=== PATIENT | male | born 1990 | race Caucasian/White ===

== ENCOUNTER 2023-04-20 00:17 | Emergency (ER) | payer MEDICAID, SELFPAY ==
--- NOTE | 2023-04-20 | ECG_ITS ---
Test Reason : DIZZINESS Blood Pressure : / mmHG Vent. Rate : 055 BPM Atrial Rate : 055 BPM P-R Int : 144 ms QRS Dur : 098 ms QT Int : 414 ms P-R-T Axes : 020 036 025 degrees QTc Int : 396 ms Sinus bradycardia RSR' or QR pattern in V1 suggests right ventricular conduction delay Abnormal ECG No previous ECGs available Referred By: Generic ED Physician Electronically Signed By:CHRISTINE SMITH MD
--- NOTE | ~2023-04-20 | XR_ITS ---
EXAMINATION: XR CHEST CLINICAL INFORMATION: Syncope. COMPARISON: None available. TECHNIQUE: 2 views of the chest were obtained. FINDINGS: No significant abnormality is noted involving the heart, lungs, mediastinum, bony thorax or soft tissues. XR/XR chest 2V IMPRESSION: Unremarkable examination.
--- NOTE | ~2023-04-20 | CT_ITS ---
EXAMINATION: CT HEAD WITHOUT CONTRAST CLINICAL INFORMATION: Fall. Injury. Pain. COMPARISON: None available. TECHNIQUE: Contiguous axial imaging was performed from the skull base to vertex without intravenous administration of contrast. This CT examination was performed using dose optimization techniques as appropriate, variously including the following: *Automated exposure control *Adjustment of mA and/or kV according to patient size (this includes techniques or standardized protocols for targeted exams where dose is matched to indication/reason for exam; i.e. extremities or head) *Use of iterative reconstruction technique DLP: 754 mGy-cm FINDINGS: The lateral, third and fourth ventricles are normally outlined. The cortical sulci and basal cisterns are normally outlined as well. There is no acute territorial defect, hemorrhage or midline shift. The extra-axial spaces are unremarkable. Calvarium/scalp: Intact. Maxillofacial sinuses and mastoids: Clear as visualized. CT/CT head/brain wo IV con IMPRESSION: No acute intracranial abnormality.
[2023-04-20 00:24] VITALS: BP 109/70; PULSE 74; RESP 16; TEMP 36.4; O2SAT 99; BMI 39.5
[2023-04-20 00:56] LABS: Hematocrit 43.2 % (42.0-52.0); Hemoglobin 15.3 g/dl (14.0-18.0); Mean Corpuscular HGB Conc 35.4 g/dl (31.0-36.0); Mean Corpuscular Hemoglobin 29.5 pg (27.0-33.0); Mean Corpuscular Volume 83.2 fL (80.0-98.0); Mean Platelet Volume 9.6 fL (9.4-12.4); Platelet Count 452 X10*3/uL (160-400); Red Blood Count 5.19 X10*6/uL (4.60-5.80); Red Cell Distribution Width 12.3 % (11.0-16.0)
[2023-04-20 01:14] LABS: Alanine Aminotransferase 55 U/L (0-40); Albumin Level 4.5 g/dL (3.5-5.0); Alkaline Phosphatase 61 U/L (39-117); Anion Gap 15 (12-20); Aspartate Amino Transferase 32 U/L (5-37); Bilirubin Total 0.7 mg/dL (0.0-1.0); Blood Urea Nitrogen 12 mg/dL (9-16); Calcium 9.7 mg/dL (8.4-10.2); Carbon Dioxide 26 mmol/L (22-29); Chloride 98 mmol/L (96-108); Creatinine Clr Calc Pharmacy 110.3; Estimated Glomerular Filt Rate > 60; Glucose Random 132 mg/dL (60-115); Potassium 3.7 mmol/L (3.3-5.1); Sodium 135 mmol/L (135-145); Total Protein 8.1 g/dL (6.5-8.0)
[2023-04-20 01:34] VITALS: BP 102/66; PULSE 75; RESP 16; TEMP 36.7; O2SAT 96
--- NOTE | 2023-04-20 01:55 | ED_ITS ---
HPI - General Adult General Chief complaint: Dizziness Stated complaint: Syncope/Hit head per pt Time Seen by Provider: 04/20/23 01:45 Source: patient, RN notes reviewed and old records reviewed Mode of arrival: ambulatory Limitations: no limitations History of Present Illness HPI narrative: 33-year-old male with past medical history significant for obesity presents for evaluation of syncope. Patient reports that just prior to arrival he stood up and then started to feel hot so he went to the bathroom because he felt he was going to pass out. He did end up passing out and hitting the left side of his face on the ground. His friends heard and so went to check on him. They helped him stand up and then he reportedly had a number syncopal episode Patient reports that he had one episode of vomiting yesterday and thought he had ?a stomach bug. ? He denies any significant pain including headache, neck pain, chest pain abdominal pain. He continues to have on and off waves of nausea He denies any fevers, chills pain No cough or shortness of breath No other complaints or concerns at this time He has had a couple of syncopal episodes in the past but not repeatedly Related Data Previous Rx's Medication Instructions Recorded ondansetron 4 mg disintegrating 4 mg PO Q6-8H PRN nausea and 04/20/23 tablet vomiting #14 tabs Allergies Allergy/AdvReac Type Severity Reaction Status Date / Time No Known Allergies Allergy Verified 04/20/23 01:57 Review of Systems 2 Constitutional: Constitutional: Denies body ache(s), Denies chills, Denies fever(s) and Denies headache(s) Eyes: Eyes: Denies blurry vision ENT: Denies headache(s) and Denies sore throat Cardiovascular: Cardiovascular: Denies chest pain, Reports syncope, Denies leg edema, Reports lightheadedness and Denies dyspnea Respiratory: Respiratory: Denies chest congestion, Denies cough and Denies dyspnea Gastrointestinal: Gastrointestinal: Denies abdominal pain, Reports nausea and Reports vomiting Genitourinary: Genitourinary: Denies dysuria Musculoskeletal: Musculoskeletal: Denies back pain Integumentary/Breasts: Skin/Breast: Denies rash Neurologic: Reports syncope and Denies headache(s) [facility] Social History Social History Smoked in Last 30 Days: No Use of substances other than those prescribed or required for medical reasons: Yes Substance Use Type: Marijuana Advance Directives: No Advance Directives Information Provided: Yes Physical Exam ED Vital Signs: Vital Signs - 24 hr 04/20/23 00:24 04/20/23 01:34 04/20/23 02:49 Temperature 97.5 F 98.0 F Pulse Rate 74 75 64 Respiratory Rate 16 16 Blood Pressure 109/70 102/66 106/61 Pulse Oximetry 99 96 Oxygen Delivery Method Room Air Room Air 04/20/23 02:49 04/20/23 02:51 04/20/23 04:00 Temperature 98.5 F Pulse Rate 64 75 76 Respiratory Rate 15 Blood Pressure 112/63 106/67 106/67 Pulse Oximetry 99 Oxygen Delivery Method Room Air BMI result Body Mass Index 39.5 Const General: healthy appearing, comfortable, no acute distress, alert and awake Nutritional Appearance: well nourished Orientation/consciousness: patient oriented x3 HENMT Head: Yes normocephalic and Yes atraumatic Eyes Eyelids: Yes eyelids normal Conjunctivae: conjunctivae normal Sclerae: sclerae normal Corneas: corneas normal Pupils: Equal, round and reactive pupils present EOM: EOMs intact bilaterally Neck Neck: Yes full ROM Resp Effort & Inspection: normal respiratory effort, able to speak in complete sentences, no audible wheezes and not labored Auscultation: clear to auscultation bilaterally Cardio Rate: regular rate Rhythm: regular rhythm GI Inspection: No distended Palpation (GI): Soft to palpation, not firm, nontender, no guarding and not rigid Skin General skin exam: elasticity normal Neuro General: patient oriented x3 Cranial nerves: Yes CN's II-XII intact bilaterally, Yes Equal, round and reactive pupils present and Yes Bilaterally intact EOM present Cognition (Neuro): normal cognition Extrem Other: Moving all extremities well without any obvious deformities Course Reevaluation(s) Reevaluation #1: Patient signed out to Dr Mendoza Time: 02:15 Reevaluation #2: 04:41 I assumed care of this patient from my colleague, physician wardrobe assistant Mohan Nath at 02:15 hours. The patient states he has not been eating and drinking over the past several days. Patient had several episodes of loose diarrheal stool and vomiting. Prior to coming to the emergency department he states that he fell very warm and hot, got up to go to the bathroom, he states that his vision turned hood and then the next thing he knew he was on the bathroom floor. He states he did strike his head on the bathtub. His friend tried to pick him up and he had a 2nd syncopal episode. Patient was treated with normal saline x1 L IV and Zofran. My interpretation patient's laboratory evaluation as follows: WBC elevated 12,000, no anemia with an H&H of 15.3 and 43.2, chemistry panel was normal. Troponin was below detectable limits. CT scan of the patient's brain revealed no bleed or skull fracture. Chest x- ray was unremarkable. COVID-19, influenza and RSV was negative patient will be discharged home with a prescription for Zofran, most likely has a viral infection and his syncopal episode was caused by dehydration vasovagal syncope. Time: 04:41 Medications Administered Discontinued Medications Generic Name Dose Route Start Last Admin Trade Name Freq PRN Reason Stop Dose Admin Sodium Chloride 1,000 mls @ 999 mls/hr 04/20/23 02:00 04/20/23 03:19 Ns IV 04/20/23 03:00 Infused .Q1H1M WILDER Infusion Ondansetron HCl 4 mg 04/20/23 01:57 04/20/23 02:16 Ondansetron Hcl 4 Mg/2 Ml Vial IVPUSH 04/20/23 01:58 4 mg ONCE ONE Administration Medical Decision Making Medical Decision Making [facility] Narrative: 33-year-old male presents for evaluation of at least 3 syncopal episodes. His symptoms started upon standing. On arrival he has no signs of trauma including where he reports striking the left side of his face. He has a reassuring physical exam including neuro does intact. He denies any abdominal pain is abdominal tenderness on exam. He does have intermittent nausea. Patient reports having a ?GI bug as today. ? Will swab him for influenza and COVID. His labs are significant for mild leukocytosis which may be related to his syncopal episode or vomiting. At this point there is no obvious concern for infection. His blood pressure is low normal at 102/66. He is bradycardic without evidence of heart block or arrhythmia. He is PERC negative has no risk factors for PE. Symptoms may be related to a viral GI illness. Will treat with IV fluids, Zofran and re- evaluate. I added on a troponin given the multiple syncopal episodes but I have a low suspicion for ACS the patient never had any chest pain his EKG is nonischemic. Differential Diagnosis Differential Diagnoses: The differential diagnosis associated with the presentation includes Syncope Vasovagal syncope Dehydration Orthostasis DIEGO Intracranial hemorrhage Admission/Observation Consideration of admission/observation: Escalation of care including admission/observation considered Multiple syncopal episodes Lab Data MDM Lab Attestation statement: I reviewed the patient's lab results. Mild leukocytosis at 12.0 okay. No significant anemia. Platelet count just above normal at 452 K. No significant electrolyte abnormalities. Glucose 132 but no evidence of DKA and fact the patient is not diabetic. 04/20/23 00:44 04/20/23 00:44 Labs: Lab Results 04/20/23 04/20/23 04/20/23 Range/Units 00:44 02:13 03:37 WBC 12.0 H (4.8-10.8) X10*3/uL RBC 5.19 (4.60-5.80) X10*6/uL Hgb 15.3 (14.0-18.0) g/dl Hct 43.2 (42.0-52.0) % MCV 83.2 (80.0-98.0) fL MCH 29.5 (27.0-33.0) pg MCHC 35.4 (31.0-36.0) g/dl RDW 12.3 (11.0-16.0) % Plt Count 452 H (160-400) X10*3/uL MPV 9.6 (9.4-12.4) fL Absolute Nucleated RBC 0.000 (0.0-0.012) X10*3/uL Nucleated RBC % (auto) 0.0 (0.0-0.2) /100WBC PT 13.2 (11.1-13.3) SEC INR 1.1 (0.9-1.1) Sodium 135 (135-145) mmol/L Potassium 3.7 (3.3-5.1) mmol/L Chloride 98 (96-108) mmol/L Carbon Dioxide 26 (22-29) mmol/L Anion Gap 15 (12-20) BUN 12 (9-16) mg/dL Creatinine 1.21 (0.5-1.4) mg/dL Estim Creat Clear Calc 110.3 Estimated GFR > 60 Random Glucose 132 H (60-115) mg/dL Calcium 9.7 (8.4-10.2) mg/dL Total Bilirubin 0.7 (0.0-1.0) mg/dL AST 32 (5-37) U/L ALT 55 H (0-40) U/L Alkaline Phosphatase 61 (39-117) U/L Troponin I High Sens < 2.7 (<3.5-35.0) ng/L Total Protein 8.1 H (6.5-8.0) g/dL Albumin 4.5 (3.5-5.0) g/dL Urine Color Dark Yellow Urine Appearance Cloudy Urine pH 5.5 (5.0-9.0) Ur Specific [place] >= 1.030 H (1.005-1.025) Urine Protein 100 (2+) H (Neg-Trace) mg/dL Urine Glucose (UA) Negative (Negative) mg/dL Urine Ketones Trace (Negative) mg/dL Urine Blood Negative (Negative) Urine Nitrite Negative (Negative) Ur Leukocyte Esterase Trace H (Negative) Urine RBC 3-5 H (0-2) /HPF Urine WBC 0-5 (0-5) /HPF Ur Squamous Epith Cells 6-10 (0-2) /HPF Ur Transition Epith Cell Present Ur Renal Epithelial Cell Present Urine Bacteria None Seen (None Seen) Epithelial Casts Present Hyaline Casts >20 (0-2) /LPF Urine Opiates Screen Not Detected (Not Detect) Urine Fentanyl Screen Not Detected (Not Detect) Ur Barbiturates Screen Not Detected (Not Detect) Ur Phencyclidine Scrn Not Detected (Not Detect) Ur Amphetamines Screen Not Detected (Not Detect) U Benzodiazepines Scrn Not Detected (Not Detect) Urine Cocaine Screen Not Detected (Not Detect) U Marijuana (THC) Screen POSITIVE H (Not Detect) COVID-19 (PITA) Negative (Negative) COVID-19 Clin Com See Note Influenza Type A (RAVI) Negative (Negative) Influenza Type B (RAVI) Negative (Negative) Influenza A & B Note See Note Independent Interpretation I performed an independent interpretation of an: EKG (Sinus bradycardia with a rate of 55 beats per minute. No ST segment elevations or depressions. No ectopy) Interpretation: My interpretation patient's 12 EKG done at 00:32 hours is as follows: sinus bradycardia with a rate of 55, normal CO interval, QRS duration QTC interval, no ST segment elevation, no ST segment depression, no PACs, no PVCs except for the bradycardia this is a normal EKG. Radiology Impression Discussion of test interpretation with radiology: I have reviewed the radiologist's reading. Radiologist Impression: CT head/brain wo IV con IMPRESSION: No acute intracranial abnormality. Dictated By: Donnell Turner XR chest 2V IMPRESSION: Unremarkable examination. Dictated By: Donnell Turner Discharge Plan Discharge Clinical Impression: Acute dehydration, Viral syndrome Syncope Qualifiers: Syncope type: vasovagal syncope Qualified Code(s): R55 - Syncope and collapse Closed head injury Qualifiers: Encounter type: initial encounter Qualified Code(s): S09.90XA - Unspecified injury of head, initial encounter Vomiting Qualifiers: Nausea presence: with nausea Patient Disposition: Home, Self-Care Instructions: Syncope (ED), Head Injury (ED), Viral Syndrome (ED) Additional Instructions: CT scan of your brain revealed no skull fracture no bleeding in the brain Your chest x-ray was normal. Your RSV, influenza and COVID-19 tests were negative. Your blood work was normal. Your symptoms are most likely related to a viral infection which cause you to be dehydrated and then caused due faint. Take Zofran ODT 4 mg pills, 1 pill dissolved in your mouth every 8 hours as needed for nausea and vomiting. Increase your fluid intake over the next 24 hours to prevent dehydration For the next 24 hours, stay on a RENÉE diet (bananas, rice, applesauce, tea and toast). Follow-up with your doctor in 2 days. Please return to the emergency department if your symptoms get worse or if you develop any symptoms that are concerning to you. Prescriptions: New ondansetron 4 mg tablet,disintegrating 4 mg PO Q6-8H PRN (Reason: nausea and vomiting) Qty: 14 0RF
[2023-04-20] MEDS: 0.9 % Sodium Chloride 1,000 ML 999 ML IV (02:16)
[2023-04-20] MEDS: ondansetron HCL 4 MG/2 ML VIAL IVPUSH (02:16)
[2023-04-20 02:37] LABS: INTERNATIONAL NORM RATIO 1.1 (0.9-1.1); Prothrombin Time 13.2 SEC (11.1-13.3)
[2023-04-20 02:45] LABS: COVID-19 Test Negative (Negative); IDNOW Serial# BCCEAD1C
[2023-04-20 02:48] LABS: IDNOW Serial# 08D9AD1C; Influenza A Negative (Negative); Influenza B2 Negative (Negative)
[2023-04-20 02:49] VITALS: BP 106/61; BP 112/63; PULSE 64
[2023-04-20 02:51] VITALS: BP 106/67; PULSE 75
[2023-04-20 02:52] LABS: Troponin-I High Sensitivity < 2.7 ng/L (<3.5-35.0)
--- NOTE | 2023-04-20 03:39 | MHC.EDTECH ---
Patient urine sample collected and sent to lab .
[2023-04-20 03:43] LABS: Appearance Urine Cloudy; Color Urine Dark Yellow; Glucose Urine UA Negative (Negative); Leukocyte Esterase Urine Trace (Negative); Nitrite Urine Negative (Negative); PH 5.5 (5.0-9.0); Specific Gravity - Urine >= 1.030 (1.005-1.025); UMIC TRIGGER UACC YES; Urine Blood Negative (Negative); Urine Ketones Trace mg/dL (Negative); Urine Protein 100 (2+) mg/dL (Neg-Trace)
[2023-04-20 03:49] LABS: Amphetamine Screen Urine Not Detected (Not Detect); Barbiturates, Urine Not Detected (Not Detect); Benzodiazepines Screen Urine Not Detected (Not Detect); Cannabinoid Screen Urine POSITIVE (Not Detect); Cocaine Screen Urine Not Detected (Not Detect); Fentanyl, urine Not Detected (Not Detect); Opiate Screen Urine Not Detected (Not Detect); Phencyclidine Screen Urine Not Detected (Not Detect)
[2023-04-20 03:54] LABS: Bacteria Urine None Seen (None Seen); Epith (RTE) Cast Present; Hyaline Casts Urine >20 /LPF (0-2); Renal Epithelial Cells Urine Present; Transitional Epi Cells Urine Present; WBC Urine 0-5 /HPF (0-5)
[2023-04-20 04:00] VITALS: BP 106/67; PULSE 76; RESP 15; TEMP 36.9; O2SAT 99
== END 2023-04-20 05:18 | disposition home or self-care (01) ==
PROVIDERS: Physician Assistant; Emergency Provider Emergency Medicine Emergency Medical Services
DX: S09.90XA Unspecified injury of head, initial encounter (principal); R42 Dizziness and giddiness; R55 Syncope and collapse; E86.0 Dehydration; B34.9 Viral infection, unspecified; R11.2 Nausea with vomiting, unspecified; R00.0 Tachycardia, unspecified; W01.10XA Fall on same level from slipping, tripping and stumbling with subsequent striking against unspecified object, initial encounter; Y93.9 Activity, unspecified; Y92.9 Unspecified place or not applicable; Y99.9 Unspecified external cause status; Z11.52 Encounter for screening for COVID-19; Z20.822 Contact with and (suspected) exposure to COVID-19; Z79.899 Other long term (current) drug therapy
CPT/HCPCS: 36415; 70450; 71046; 80053; 80307; 81001; 84484; 85027; 85610; 87502; 87635; 93005; 96361; 96374; 99284; 99285; J2405